=== PATIENT | male | born 1985 | race Caucasian/White ===

== ENCOUNTER 2019-02-21 03:54 | Emergency (ER) | payer OTHER ==
[~2019-02-21] VITALS: Ht 182.9 cm; Wt 77.1 kg
[2019-02-21] MEDS ORDERED: IV RINGERS SOLUTION,LACTATED 1,000 ML IV SCH (04:05)
--- NOTE | 2019-02-21 04:05 | PHYS DOC ---
Adult General Chief Complaint Chief Complaint: ".. I got bad... abd. pain.. ".. It s been coming on the last couple days.. but it woke me up tonight.. it like some one area knife in my lower abdomen... Here on the right..." HPI HPI Patient is a 33 year old male who presents with above hx and complaints of severe right lower abdomen pain. Patient denies any intake bad food. No recent travel. No specific ill contacts. Patient denies any trauma. No history immunosuppression. Patient states he is normally healthy. Does admit to tobacco and marijuana use. Did have a few drinks over the years. Review of Systems Review of Systems Constitutional: Denies fever or chills [] Eyes: Denies change in visual acuity, redness, or eye pain [] HENT: Denies nasal congestion or sore throat [] Respiratory: Denies cough or shortness of breath [] Cardiovascular: No additional information not addressed in HPI [] GI: Complaints of severe right lower abdominal pain, nausea,. Denies vomiting, bloody stools or diarrhea [] : Denies dysuria or hematuria [] Musculoskeletal: Denies back pain or joint pain [] Integument: Denies rash or skin lesions [] Neurologic: Denies headache, focal weakness or sensory changes [] Endocrine: Denies polyuria or polydipsia [] All other systems were reviewed and found to be within normal limits, except as documented in this note. Family History Family History Noncontributory Current Medications Current Medications See nursing for home meds Allergies Allergies Allergic to penicillins Physical Exam Physical Exam Constitutional: Well developed, well nourished, in acute distress, non-toxic appearance. [] HENT: Normocephalic, atraumatic, bilateral external ears normal, oropharynx moist, no oral exudates, nose normal. [] Eyes: PERRLA, EOMI, conjunctiva normal, no discharge. [] Neck: Normal range of motion, no tenderness, supple, no stridor. [] Cardiovascular: Tachycardia Heart rate regular rhythm, no murmur [] Lungs & Thorax: Bilateral breath sounds clear to auscultation [] Abdomen: Bowel sounds decreased, soft, right lower quadrant tenderness, no masses, no pulsatile masses. [] Rebound to right lower quadrant. Does have some right flank pain. Testicles are nontender. Skin: Warm, dry, no erythema, no rash. [] Back: No tenderness, no CVA tenderness. [] Extremities: No tenderness, no cyanosis, no clubbing, ROM intact, no edema. [] Mild psoas on right Neurologic: Alert and oriented X 3, normal motor function, normal sensory function, no focal deficits noted. [] Psychologic: Affect anxious, judgement normal, mood normal. [] EKG EKG [] Radiology/Procedures Radiology/Procedures [][address] [address] IMAGING REPORT Signed PATIENT: VALDEZ MORALES ACCOUNT: [id number] : 1985 LOCATION: ER AGE: 33 SEX: M EXAM STATUS: REG ER ORD. PHYSICIAN: TYRONE CORNEJO MD REASON: Severe right sided abdomen pain, nausea, vomiting today PROCEDURE: CT ABD PELV W/ORAL&IV CONTRAST Study: CT abdomen/pelvis with intravenous contrast Indication: Severe right-sided abdominal pain. Nausea and vomiting. Comparison: None. Technique: Helical CT imaging performed of the abdomen and pelvis after the intravenous administration of contrast. Sagittal and coronal reformats were obtained. One or more of the following individualized dose reduction techniques were utilized for this examination: 1. Automated exposure control 2. Adjustment of the mA and/or kV according to patient size 3. Use of iterative reconstruction technique. Findings: Unremarkable lower lungs and visualized heart. Circumferential periportal low-attenuation. The liver is otherwise unremarkable. Mildly thickened gallbladder wall at approximately 3 mm. Unremarkable pancreas, spleen and adrenal glands. Hydroureteronephrosis on the right in the setting of a 2.5 mm nephrolithiasis at the ureterovesicular junction, image 79 series 2. Mild perinephric edema and slightly diminished enhancement of the right kidney relative to the left. Unremarkable colon with narrowing at the mid transverse aspect favored secondary to collapse. Unremarkable appendix. Nonobstructed small bowel. Unremarkable stomach. Unremarkable vasculature. No adenopathy. Subcutaneous fatty reticulation anteriorly at the right lower quadrant with small amount of air is likely an injection site. Disc bulge at L5-S1 which may extruded above the level of disc space and suspected mild associated central canal stenosis. Impression: 1. Right-sided hydroureteronephrosis in the setting of a 2.5 mm stone at the ureterovesicular junction. Associated slightly diminished right kidney enhancement relative to the left as well as faint perinephric edema. 2. Periportal low-attenuation as well as a mildly edematous gallbladder wall which could represent a manifestation of aggressive volume resuscitation. 3. Subcutaneous fatty stranding and a small amount of air at the right lower quadrant. Correlate for a recent injection at this site. 4. Disc bulge at L5-S1 with possible extrusion above the level of the disc space. This is not well evaluated on this study but is thought to contribute to mild central canal stenosis. Electronically signed by: BERENICE MONCADA MD (02/21/2019 6:03 AM) [facility] DICTATED AND SIGNED BY: BERENICE MONCADA MD DATE: 02/21/19602 CC: TYRONE CORNEJO MD; PCP,NO ~ Course & Med Decision Making Course & Med Decision Making Pertinent Labs and Imaging studies reviewed. (See chart for details) Patient stay on clear fluids if continued nausea. Push fluids. Take Flomax 0.4 daily. Warned him MiraLAX may cause dizziness. Patient to take Cipro 500 mg twice day. Patient follow up urine cultures. Patient follow-up primary care. If continued pain present to [facility] or hospital and has urology available. Save stone if passed. Zofran for nausea and vomiting. For marked pain may take Vicoprofen. Return if any concerns. Patient was informed of his biliary edema however this is not the area of his current pain. Impression 1. Abdomen pain 2. Renal colic-right- renal stone UVJ 3. Elevated lymphocytes 49 4. Elevated lipase-680 5. Lactic acid 3.2 6. Dehydration- [] Dragon Disclaimer Dragon Disclaimer This electronic medical record was generated, in whole or in part, using a voice recognition dictation system. Departure Departure: Disposition: 01 HOME/RESIDENCE PRIOR TO ADM Condition: STABLE Scripts Tamsulosin Hcl (FLOMAX) 0.4 Mg Cap.er.24h 0.4 MG PO DAILY for renal colic for 10 Days, #10 CAP.SR Prov: TYRONE CORNEJO MD 02/21/19 Ciprofloxacin (CIPRO) 500 Mg/5 Ml Paulina.mc.rec 500 MG PO BID for renal colic, for 5 Days, MISC Prov: TYRONE CORNEJO MD 02/21/19 Ondansetron Hcl (ZOFRAN) 8 Mg Tablet 8 MG PO QIDPRN PRN for active vomiting, #30 BOTTLE Prov: TYRONE CORNEJO MD 02/21/19 Hydrocodone/Ibuprofen (HYDROCODONE-IBUPROFEN 7.5-200 ) 1 Each Tablet 1 TAB PO PRN Q6HRS PRN for PAIN, #30 TAB 0 Refills Prov: TYRONE CORNEJO MD 02/21/19 Dragon Disclaimer This chart was dictated in whole or in part using Voice Recognition software in a busy, high-work load, and often noisy Emergency Department environment. It may contain unintended and wholly unrecognized errors or omissions. TYRONE CORNEJO MD Feb 21, 2019 04:05
[2019-02-21] MEDS ORDERED: ONDANSETRON PF 4 MG/2 ML VIAL. IVP ONE ×2 (04:15→07:15)
[2019-02-21] MEDS ORDERED: MORPHINE SULFATE 10 MG/ML SYRINGE. ONE (04:20)
[2019-02-21] MEDS ORDERED: MORPHINE SULFATE 10 MG/ML SYRINGE. SQ ONE (04:30)
[2019-02-21] MEDS ORDERED: IOHEXOL 240 MG/ML 50ML VIAL. ONE (04:33)
[2019-02-21 04:43] LABS: BASO # 0.1 x10^3/uL (0.0-0.2); BASO % 1 % (0-3); EOS # 0.1 x10^3/uL (0.0-0.7); EOS % 2 % (0-3); HEMATOCRIT 43.9 % (39.0-53.0); LYMPH # 3.7 x10^3/uL (1.0-4.8); LYMPH % 49 % (24-48); MEAN CORPUSCULAR HEMOGLOBIN 30 pg (25-35); MEAN CORPUSCULAR HGB CONC 34 g/dL (31-37); MEAN CORPUSCULAR VOLUME 88 fL (79-100); MONO # 0.6 x10^3/uL (0.0-1.1); MONO % 8 % (0-9); NEUT % 41 % (31-73); PLATELET COUNT 183 x10^3/uL (140-400); RED BLOOD COUNT 4.98 x10^6/uL (4.30-5.70); RED CELL DISTRIBUTION WIDTH 13.1 % (11.5-14.5); WHITE BLOOD COUNT 7.4 x10^3/uL (4.0-11.0)
[2019-02-21 04:57] LABS: CALCIUM 9.1 mg/dL (8.5-10.1); CREATININE 1.1 mg/dL (0.7-1.3); GFR 78.1; POTASSIUM 3.3 mmol/L (3.5-5.1)
[2019-02-21] MEDS ORDERED: IOHEXOL 300 MG/ML 75 ML VIAL. IV ONE (05:00)
[2019-02-21] MEDS ORDERED: FAMOTIDINE 20 MG/2 ML VIAL IVP ONE (05:00)
[2019-02-21] MEDS ORDERED: KETOROLAC 30 MG/ML VIAL. IVP ONE (05:00)
[2019-02-21] MEDS ORDERED: IOHEXOL 240 MG/ML 50ML VIAL. PO ONE (05:00)
[2019-02-21] MEDS ORDERED: CONTRAST GIVEN MC PRN (05:00)
[2019-02-21 05:04] LABS: ALBUMIN 3.8 g/dL (3.4-5.0); DIRECT BILIRUBIN 0.1 mg/dL (0.0-0.2); TOTAL BILIRUBIN 0.3 mg/dL (0.2-1.0); TOTAL PROTEIN 7.2 g/dL (6.4-8.2)
--- NOTE | 2019-02-21 06:05 | RAD ---
Study: CT abdomen/pelvis with intravenous contrast Indication: Severe right-sided abdominal pain. Nausea and vomiting. Comparison: None. Technique: Helical CT imaging performed of the abdomen and pelvis after the intravenous administration of contrast. Sagittal and coronal reformats were obtained. One or more of the following individualized dose reduction techniques were utilized for this examination: 1. Automated exposure control 2. Adjustment of the mA and/or kV according to patient size 3. Use of iterative reconstruction technique. Findings: Unremarkable lower lungs and visualized heart. Circumferential periportal low-attenuation. The liver is otherwise unremarkable. Mildly thickened gallbladder wall at approximately 3 mm. Unremarkable pancreas, spleen and adrenal glands. Hydroureteronephrosis on the right in the setting of a 2.5 mm nephrolithiasis at the ureterovesicular junction, image 79 series 2. Mild perinephric edema and slightly diminished enhancement of the right kidney relative to the left. Unremarkable colon with narrowing at the mid transverse aspect favored secondary to collapse. Unremarkable appendix. Nonobstructed small bowel. Unremarkable stomach. Unremarkable vasculature. No adenopathy. Subcutaneous fatty reticulation anteriorly at the right lower quadrant with small amount of air is likely an injection site. Disc bulge at L5-S1 which may extruded above the level of disc space and suspected mild associated central canal stenosis. Impression: 1. Right-sided hydroureteronephrosis in the setting of a 2.5 mm stone at the ureterovesicular junction. Associated slightly diminished right kidney enhancement relative to the left as well as faint perinephric edema. 2. Periportal low-attenuation as well as a mildly edematous gallbladder wall which could represent a manifestation of aggressive volume resuscitation. 3. Subcutaneous fatty stranding and a small amount of air at the right lower quadrant. Correlate for a recent injection at this site. 4. Disc bulge at L5-S1 with possible extrusion above the level of the disc space. This is not well evaluated on this study but is thought to contribute to mild central canal stenosis. Electronically signed by: BERENICE MONCADA MD (02/21/2019 6:03 AM) [facility]
[2019-02-21] MEDS ORDERED: HYDR-1179 PO (06:29)
[2019-02-21] MEDS ORDERED: ONDA8TAB9 PO (06:29)
[2019-02-21] MEDS ORDERED: TAMS0.4C97 PO (06:31)
[2019-02-21] MEDS ORDERED: CIPR500S2 PO (06:31)
[2019-02-21 06:58] VITALS: BP 121/80
[2019-02-21] MEDS ORDERED: TAMSULOSIN 0.4 MG CAP.ER.24H. PO ONE (07:00)
[2019-02-21] MEDS ORDERED: CIPROFLOXACIN HCL 500 MG TABLET PO ONE (07:00)
[2019-02-21 07:23] LABS: AMPHETAMINE/METHAMPHETAMINE NEG (NEG); BARBITURATES NEG (NEG); BENZODIAZEPINES NEG (NEG); CANNABINOIDS POS (NEG); COCAINE NEG (NEG); METHADONE NEG (NEG); OPIATES POS (NEG); PHENCYCLIDINE NEG (NEG)
[2019-02-21 07:36] LABS: BACTERIA,URINE 0 /HPF (0-FEW); BILIRUBIN,URINE NEG (NEG); CLARITY,URINE HAZY; COLOR,URINE YELLOW; GLUCOSE,URINE NEG (NEG); NITRITE,URINE NEG (NEG); SQUAMOUS EPITHELIAL CELL,UR OCC /LPF; UROBILINOGEN,URINE 0.2 mg/dL (0.2 mg/dL); WBC,URINE RARE /HPF (0-4)
--- NOTE | 2019-02-21 07:54 | RAD ---
Examination: ACUTE ABDOMEN SERIES History: Severe right-sided abdominal pain. Nausea and vomiting. Comparison/Correlation: 02/21/2019 CT abdomen and pelvis with contrast Findings: Frontal view of chest was obtained. Heart size and pulmonary vasculature are normal. No infiltrate or pleural effusion. Supine and upright views of the abdomen were obtained. No extraluminal gas. No bowel obstruction. Pelvic calcification is present slightly to the right of midline corresponding to the right ureterovesical calculus reported on CT exam. Impression: No infiltrate. Calcific density within the pelvis which correspond to patient's reported right ureterovesical junction calculus. Electronically signed by: Taz Blanco MD (02/21/2019 7:51 AM) [facility]
== END 2019-02-21 07:15 | disposition home or self-care (01) ==
LOC: ER 03:54
DX: N13.2 Hydronephrosis with renal and ureteral calculous obstruction (principal); D72.820 Lymphocytosis (symptomatic); R74.8 Abnormal levels of other serum enzymes; E86.0 Dehydration
CPT/HCPCS: 36415; 74022; 74177; 80048; 80076; 80307; 81001; 82150; 83605; 83690; 85025; 96365; 96372; 96375; 96376; 99285; J1885; J2270; J2405; J3490; J7120; Q9966; Q9967